=== PATIENT | female | born 1990 | race Caucasian/White ===

== ENCOUNTER 2017-06-13 18:36 | Emergency (ER) | payer SELFPAY ==
[2017-06-13] MEDS ORDERED: metroNIDAZOLE 500 MG TAB PO ONE (18:49)
[2017-06-13] MEDS ORDERED: AZITHROMYCIN 250 MG TAB PO ONE (18:49)
[2017-06-13 18:53] VITALS: O2SAT 98
--- NOTE | 2017-06-13 18:54 | ED.PDOC ---
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 She heard that her ex-boyfriend has had STDs in the past. She is really having minimal symptoms. Minimal vaginal discharge. No real pelvic pain. No fevers. No external lesions. No burning.he reports she is no longer with this person. Timing/Duration: unsure Severity: mild Improving Factors: nothing Worsening Factors: nothing Associated Symptoms: denies symptoms Review of Systems - Review of Systems Constitutional: States: no symptoms reported EENTM: States: no symptoms reported Respiratory: States: no symptoms reported Cardiology: States: no symptoms reported Gastrointestinal/Abdominal: States: no symptoms reported Genitourinary: States: see HPI Musculoskeletal: States: no symptoms reported Skin: States: no symptoms reported Neurological: States: no symptoms reported All other Systems: No Change from Baseline Physical Exam - Physical Exam General Appearance: Alert, Comfortable, No apparent distress Eye Exam: bilateral normal Ears, Nose, Throat: hearing grossly normal Neck: full range of motion Respiratory: no respiratory distress, no accessory muscle use Cardiovascular/Chest: no edema Peripheral Pulses: radial,right: 2+, radial,left: 2+ Gastrointestinal/Abdominal: non tender, soft Rectal Exam: deferred Back Exam: no CVA tenderness Extremity: normal inspection, no pedal edema, normal capillary refill 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 The patient will need follow-up with the public health department for family planning for comprehensive STD checks. We will send off a urine for GC and chlamydia testing. For now the patient will be treated empirically with 2 g of metronidazole, 1 g of oral azithromycin [id number] mg of IM Rocephin. she is to not drink any alcohol for the next 24 hours. She needs to remain abstinent until she obtains definitive testing. ER warnings were given for any worsening. She does need to try and eat some food after these medications to prevent some nausea. Departure - Departure Clinical Impression: STD exposure Disposition: Discharge to Home or Self Care Condition: Fair Departure Forms: ED Discharge - Pt. Copy, Patient Portal Self Enrollment Instructions: How to Detect and Treat STDs Diet: regular diet Activity: increase activity as tolerated Additional Instructions: the patient's 27-year-old female presenting to the emergency room secondary to very mild vaginal discharge and concern for STDs. The patient will need follow-up with the public health department for family planning for comprehensive STD checks. We will send off a urine for GC and chlamydia testing. For now the patient will be treated empirically with 2 g of metronidazole, 1 g of oral azithromycin [id number] mg of IM Rocephin. she is to not drink any alcohol for the next 24 hours. She needs to remain abstinent until she obtains definitive testing. ER warnings were given for any worsening. She does need to try and eat some food after these medications to prevent some nausea.
[2017-06-13] MEDS ORDERED: LIDOCAINE 1% 10 ML VIAL INJ ONE (19:00)
[2017-06-13 19:29] VITALS: BP 138/76; TEMP 98.9
== END 2017-06-13 19:28 | disposition home or self-care (01) ==
LOC: ER 18:36
DX: Z20.2 Contact with and (suspected) exposure to infections with a predominantly sexual mode of transmission (principal)
CPT/HCPCS: 87491; 87591; J0696; Q0144